=== PATIENT | male | born 1970 | race African-American/Black ===

== ENCOUNTER 2017-01-17 11:36 | Emergency (ER) | payer OTHER ==
[~2017-01-17] VITALS: Ht 167.6 cm; Wt 73.5 kg
[~2017-01-17 11:36] MED LIST: ALBUTEROL0.09 MG/A1 INH; AMBIEN (MONOGRAP5 MG PO; FLEXERIL10 MG PO; HYDROXYZINE HCL25 MG PO; KEFLEX500 MG PO; MEDROL DOSEPAK1 PAC PO; MOTRIN800 MG PO; PERCOCET 325 MG1 TA2 PO; PREDNICOT10 MG PO; PREDNISONE10 MG PO; PROAIR HFA8.5 GM INH; TESSALON PERLE100 MG PO; ZITHROMAX Z-PA250 M1 PO; ZITHROMAX250 M2 PO
[2017-01-17 11:39] VITALS: BP 131/71
[2017-01-17] MEDS ORDERED: DELTASONE20 MG PO (12:11)
[2017-01-17] MEDS ORDERED: M-CLEAR WC LIQ473 M1 PO (12:11)
[2017-01-17] MEDS ORDERED: DOXYCYCLINE HY100 M4 PO (12:11)
--- NOTE | 2017-01-17 12:12 | ED INFLUENZA/URI COMPLAINT ---
History of Present Illness General Chief Complaint: Upper Respiratory Sx/Fever Stated Complaint: ?URI Source: patient Exam Limitations: no limitations Vital Signs & Intake/Output Vital Signs & Intake/Output Vital Signs Date Time Temp Pulse Resp B/P B/P Pulse O2 O2 Flow FiO2 Mean Ox Delivery Rate 01/17 1222 Room Air 01/17 1139 98.1 63 18 131/71 98 Room Air Allergies Coded Allergies: oxycodone (Intermediate, GI DISTRESS 01/17/17) Reconcile Medications Codeine Phosphate/Guaifenesi (M-Clear Wc Liquid) 6.3 MG-100 MG/5 ML LIQUID 5- 10 ML PO Q6P PRN COUGH Doxycycline Hyclate 100 MG TABLET 1 TAB PO BID bronchitis Prednisone (Deltasone) 20 MG TABLET 1 TAB PO DAILY BRONCHITIS Triage Note: 47 YO MALE TO TRIAGE C/O PRODUCTIVE COUGH AND BODY ACHES SINCE FRIDAYS. AFEBRILE AT THIS TIME Triage Nurses Notes Reviewed? yes Onset: Abrupt Duration: day(s):, constant, continues in ED Timing: recent history Severity: moderate, severe No Modifying Factors: none HPI: 47-year-old male comes into emergency room for further evaluation of feeling sick since last Sunday. Patient reports that he started with body aches and chills and some vomiting on Sunday. He's had some associated runny nose and congestion. Patient complains mostly now of this hacking cough with yellow mucus production. Some chest soreness when he coughs. Fevers have improved. Vomiting has resolved. Patient was sent home for work. Nothing seems to make the symptoms better or worse. Denies any other system symptoms. (CARLA RASHID) Past History Travel History Traveled to [place] past 21 day No Medical History Any Pertinent Medical History? 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 No (CARLA RASHID) Review of Systems Review of Systems Constitutional: Reports: see HPI. EENTM: Reports: see HPI. Respiratory: Reports: see HPI. Cardiovascular: Reports: no symptoms. GI: Reports: see HPI. Genitourinary: Reports: no symptoms. Musculoskeletal: Reports: no symptoms. Skin: Reports: no symptoms. Neurological/Psychological: Reports: no symptoms. Hematologic/Endocrine: Reports: no symptoms. Immunologic/Allergic: Reports: no symptoms. All Other Systems: Reviewed and Negative (CARLA RASHID) Physical Exam Physical Exam General Appearance: well developed/nourished, alert, awake Head: atraumatic, normal appearance Eyes: Bilateral: normal appearance. Ears, Nose, Throat: normal ENT inspection, moist mucous membrane, hearing grossly normal Neck: normal inspection Respiratory: normal breath sounds, no respiratory distress Cardiovascular: regular rate/rhythm Back: normal inspection Extremities: normal inspection, normal range of motion Neurologic/Psych: awake, alert, oriented x 3, normal gait, normal mood/affect Skin: intact, normal color Core Measures Severe Sepsis Present: No Septic Shock Present: No (CARLA RASHID) Progress Differential Diagnosis: influenza, meningitis, neutropenia, otitis, pneumonia, pharyngitis, sinusitis, Bronchitis Plan of Care: 01/17/2017 12:40:49 PM Patient clinically looks well. Nontoxic-appearing. In no apparent distress. Symptoms most consistent with viral illness. Patient covered with doxycycline secondary to possible pneumonia and the fact that we are not getting a chest x- ray. Supportive treatment otherwise. Return if any other concerns. Initial ED EKG: none (CARLA RASHID) Departure Departure Disposition: HOME OR SELF CARE Condition: Stable Clinical Impression Primary Impression: Bronchitis Referrals: PATIENT HAS NO PRIMARY CARE DR (PCP/Family) Additional Instructions: Take doxycycline, prednisone, and Robitussin with codeine as prescribed. Return if any concerns worsening symptoms. Follow-up with your primary care doctor. Rest. Drink plenty of fluids. Motrin or Tylenol at home for body aches fever. Please go over all results of today's visit with your primary care doctor. Contact your primary care doctor to let them know you were here in the emergency room. There may be nonspecific findings which may not be related to your visit today here in the emergency room but may require further evaluation and chronic monitoring by your primary care doctor. If you had a laceration today the chance of foreign body always remains. You should follow-up with your primary care doctor for recheck in 3-5 days for a wound check. If you had an x-ray done there is a chance that a fracture could have been missed on initial read and you should follow-up with your primary care doctor for repeat x-rays if symptoms persist. If your blood pressure was elevated here in the emergency room please have rechecked by her primary care doctor within the next 48 hours by your primary care doctor. If you were prescribed a narcotic here in the emergency room or any type of controlled substances you're not allowed to drive while taking this medication or operate any type of heavy machinery. Narcotics can make you feel lightheaded dizziness nausea and can cause constipation. You may need to tow picker a stool softener. Thank you for choosing [facility] emergency room. Please return to the emergency room immediately if you have any other concerns worsening of symptoms. Departure Forms: Customer Survey General Discharge Information Prescriptions: Current Visit Scripts Doxycycline Hyclate 1 TAB PO BID #20 TAB Prednisone (Deltasone) 1 TAB PO DAILY #5 MG Codeine Phosphate/Guaifenesi (M-Clear Wc Liquid) 5-10 ML PO Q6P PRN COUGH #120 ML (CARLA RASHID) PA/SHELL FISHERMAN Co-Sign Statement Statement: ED Attending supervision documentation- I saw and evaluated the patient. I have also reviewed all the pertinent lab results and diagnostic results. I agree with the findings and the plan of care as documented in the PA's/SHELL FISHERMAN's documentation. x I have reviewed the ED Record and agree with the PA's/SHELL FISHERMAN's documentation. [] Additions or exceptions (if any) to the PAs/SHELL FISHERMAN's note and plan are summarized below: [] (MODE WALKER,ZULY)
== END 2017-01-17 12:22 ==
LOC: ERH 11:36
DX: J40 Bronchitis, not specified as acute or chronic (principal); F17.210 Nicotine dependence, cigarettes, uncomplicated